=== PATIENT | female | born 1950 ===

== ENCOUNTER → 2016-12-01 | Outpatient (REF) | payer BC, MEDICARE | LOC: LAB 13:33 | PROVIDERS: ATTEND Family Medicine | DX: M79.671 Pain in right foot (principal) | CPT/HCPCS: 84550 ==

== ENCOUNTER → 2016-12-20 | Outpatient (CLI) | payer MEDICARE, OTHER ==
--- NOTE | 2016-12-20 12:06 | Diagnostic Imaging Report ---
PROCEDURE: CT abdomen and pelvis with and without contrast. TECHNIQUE: Precontrast acquisitions were acquired through the abdomen and pelvis. Multiple contiguous axial images were obtained through the abdomen and pelvis after the administration of intravenous contrast. INDICATION: Left flank pain. COMPARISON: CT chest and abdomen from 08/03/2016. FINDINGS: Lung bases are clear. No pericardial or pleural effusion. No free intraperitoneal air or fluid. The liver, gallbladder and spleen are normal. The pancreas enhances normally without mass lesion or peripancreatic inflammatory changes. Adrenals are normal. No renal or ureteral calculi on noncontrast imaging. There is a benign angiomyolipoma within the upper pole of the left kidney measuring 7 x 8 mm. No additional renal lesion on either side. No new renal lesion. Urinary bladder is distended without wall thickening. No bowel obstruction. Uterus appears surgically absent. No pericolonic inflammatory changes. Appendix is normal. Normal caliber thoracic aorta. Scattered atherosclerotic calcifications. No abdominal or pelvic lymphadenopathy. No concerning osseous lesions. Mild degenerative changes in the lumbar spine. There is grade 1 anterolisthesis of L5 on S1 due to chronic bilateral pars defects. IMPRESSION: 1. No acute intra-abdominal process. Specifically, no urinary tract calculi or obstructive uropathy. 2. Grade 1 anterolisthesis of L5 on S1 secondary to chronic bilateral pars defects. Report was called to Dr. Dumont by shai at 12:04 p.m. Dictated by: Dictated on workstation # [id number]
== END ==
LOC: RAD 10:18
PROVIDERS: ATTEND Family Medicine
DX: R10.12 Left upper quadrant pain (principal)
CPT/HCPCS: 74178; Q9967

== ENCOUNTER → 2016-12-20 | Outpatient (REF) | payer MEDICARE, OTHER ==
[2016-12-20 10:15] LABS: BASOPHILS % (AUTO) 0 % (0-2); EOSINOPHILS % (AUTO) 0 % (0-4); LYMPHOCYTES # (AUTO) 1.8 X10^3; MEAN CORPUSCULAR HEMOGLOBIN 30.5 PG (26.0-34.0); MEAN CORPUSCULAR VOLUME 90 FL (80-100); MONOCYTES # (AUTO) 0.8 X10^3; MONOCYTES % (AUTO) 11 % (3-11); NEUTROPHILS # (AUTO) 4.8 X10^3; NEUTROPHILS % (AUTO) 65 % (51-67); PLATELET COUNT 229 10^3uL (150-450)
[2016-12-20 10:18] LABS: BILIRUBIN,URINE Negative (Negative); GLUCOSE, URINE (UA) Negative (Negative); LEUKOCYTE ESTERASE ,URINE Negative (Negative); PH,URINE 6.5 (5.0 - 8.0); UROBILINOGEN,URINE 0.2 mg/dL (0.2-1.0)
[2016-12-20 10:26] LABS: CLARITY,URINE Slightly Cloudy; COLOR,URINE Dark Yellow
[2016-12-20 10:30] LABS: ALBUMIN 4.3 g/dL (3.4-5.0); ANION GAP 14.3 MEQ/L (3-15); CALCULATED IONIZED CALCIUM 3.8 mg/dL (3.8-4.6); TOTAL PROTEIN 7.9 g/dL (6.4-8.5)
== END ==
LOC: LAB 10:00
PROVIDERS: ATTEND Family Medicine
DX: R10.12 Left upper quadrant pain (principal); R11.0 Nausea
CPT/HCPCS: 80053; 81003; 85025